=== PATIENT | female | born 1985 | race Caucasian/White ===

== ENCOUNTER 2016-09-06 19:36 | Emergency (ER) | payer BC, MEDICARE ==
[2016-09-06] MEDS ORDERED: BUTALB/ACETAMINOPHEN/CAFFEINE 1 TAB EACH PO ONE (21:08)
--- NOTE | 2016-09-06 21:12 | ER Document Report ---
ED General - General Chief Complaint: Fall Stated Complaint: FALL, HEAD INJURY Notes: Patient is a 31-year-old female with past medical history of multiple psychiatric disorders who presents after apparently having a mechanical fall just prior to arrival. States she tripped over the edge of carpet and fell onto a door handle. Since that time she has had a dull, constant throbbing pain to her right parietal scalp. No loss of consciousness. She has not had any vomiting, weakness, numbness, or altered mental status. Does describe the pain in her scalp as being a constant, dull, aching pain. Worsened by light and sound. No history of similar injury in the past. She has not seen her primary care physician regarding today's concerns. Nothing improves her pain. TRAVEL OUTSIDE OF THE [place] IN LAST 30 DAYS: No - Related Data Allergies/Adverse Reactions: alcohol Allergy (Severe, Verified 09/06/16 21:25) Anaphylaxis amoxicillin [Amoxicillin] Allergy (Severe, Verified 09/06/16 21:25) Anaphylaxis venom-wasp [Wasp Venom] Allergy (Severe, Verified 09/06/16 21:25) HORRIBLE SWELLING haloperidol [From Haldol] Allergy (Intermediate, Verified 09/06/16 21:25) Abnormal behavior haloperidol lactate [From Haldol] Allergy (Intermediate, Verified 09/06/16 21:25 ) Abnormal behavior lamotrigine [From Lamictal] Allergy (Verified 09/06/16 21:25) STEROIDS Allergy (Severe, Uncoded 05/11/16 15:04) SUICIDAL THOUGHTS Past Medical History - General Information source: Patient - Social History Smoking Status: Never Smoker Frequency of alcohol use: None Drug Abuse: None Lives with: Parents Family History: CAD, Hyperlipidemia, Hypertension, Other - Degenerative disc disease and spinal stenosis - Past Medical History Cardiac Medical History: Denies: Hx Coronary Artery Disease, Hx Heart Attack, Hx Hypertension Pulmonary Medical History: Reports: Hx Bronchitis, Hx Pneumonia Denies: Hx Asthma, Hx COPD Neurological Medical History: Reports: Hx Migraine, Hx Seizures - according to patient none witnessed. Denies: Hx Cerebrovascular Accident Musculoskeltal Medical History: Denies Hx Arthritis - FIBROMYALGIA, Reports Hx Fibromyalgia, Reports Hx Musculoskeletal Deformity, Reports Hx Musculoskeletal Trauma Skin Medical History: Reports Hx Eczema, Reports Hx Psoriasis Psychiatric Medical History: Reports: Hx Anxiety, Hx Attention Deficit Hyperactivity Disorder, Hx Bipolar Disorder, Hx Depression Past Surgical History: Reports: Hx Breast Surgery - bx, Hx Tonsillectomy, Hx Tubal Ligation - Immunizations Immunizations up to date: Yes Hx Diphtheria, Pertussis, Tetanus Vaccination: No Review of Systems - Review of Systems Notes: Constitutional: Negative for fever. Eyes: Negative for visual changes. ENT: Negative for facial injury Cardiovascular: Negative for chest injury. Respiratory: Negative for shortness of breath. Gastrointestinal: Negative for abdominal injury. Genitourinary: Negative for genital injury Musculoskeletal: Negative for back injury. Skin: Negative for laceration/abrasions. Neurological: Positive for head injury. Physical Exam - Vital signs Vitals: Temp Pulse Resp BP Pulse Ox 97.7 F 102 H 18 130/77 H 99 09/06/16 19:42 09/06/16 19:42 09/06/16 19:42 09/06/16 19:42 09/06/16 19:42 Interpretation: Tachycardic Notes: PHYSICAL EXAMINATION: GENERAL: Well-appearing, no acute distress. HEAD: Mild swelling to the right parietal scalp, normocephalic. EYES: Pupils equal round and reactive to light, extraocular movements intact, sclera anicteric, conjunctiva are normal. ENT: nares patent, no oral pharyngeal trauma. No hemotympanum, no Olson's sign , no raccoon eyes. NECK: No midline cervical spine tenderness. Patient able to move their head to 45 bilaterally without any discomfort. LUNGS: Breath sounds clear to auscultation bilaterally and equal. No wheezes rales or rhonchi. HEART: Regular rate and rhythm without murmurs. CHEST WALL: No ecchymosis over the chest wall. ABDOMEN: Soft, nontender, normoactive bowel sounds. No guarding, no rebound. No seatbelt sign. EXTREMITIES: Normal range of motion, no pitting or edema. No long bone deformities. BACK: No midline spinal tenderness, step-offs, or deformities. NEUROLOGICAL: Face symmetric. Tongue protrudes midline. Extraocular motions intact. Pupils are 2 mm and equally reactive. Normal speech, normal gait. 5 out of 5 strength in both the distal and proximal upper and lower extremities bilaterally. Sensation is grossly intact throughout. Finger to nose testing normal. Pronator drift normal. PSYCH: Highly anxious SKIN: Warm, Dry, normal turgor, no rashes or lesions noted. Course - Re-evaluation Re-evalutation: 09/06/16 21:10 Presentation of head trauma in an otherwise well-appearing patient. No focal neurologic deficits on exam, no evidence of basilar skull fracture on exam without evidence of hemotympanum, raccoon eyes, or periauricular hematoma. No papilledema. Patient is not on anticoagulation. GCS is 15. No loss of consciousness. No episodes of vomiting. Patient is therefore negative via [place] head CT criteria and CT imaging will not be obtained at this time. Patient evaluated by NEXUS criteria and found to be negative. Patient is also negative by [place] C-spine criteria. No clinical evidence to suggest increased risk of cervical spine fracture. No indication for further imaging of the cervical spine this point. Clinical history and exam is most consistent with acute concussion. No labs, imaging indicated at this time.At this time will discharge with return precautions and follow-up recommendations. Verbal discharge instructions given a the bedside and opportunity for questions given. Medication warnings reviewed. Patient is in agreement with this plan and has verbalized understanding of return precautions and the need for primary care follow-up in the next 24-72 hours. - Vital Signs Vital signs: Temp Pulse Resp BP Pulse Ox 97.8 F 107 H 20 116/88 H 98 09/06/16 21:51 09/06/16 21:51 09/06/16 21:51 09/06/16 21:51 09/06/16 21:51 Discharge - Discharge Clinical Impression: Head trauma Qualifiers: Encounter type: initial encounter Qualified Code(s): S09.90XA - Unspecified injury of head, initial encounter Condition: Good Disposition: HOME, SELF-CARE Additional Instructions: You have likely sustained a contusion (bruise) to your head. Symptoms to expect from a concussion include nausea, mild to moderate headache, difficulty concentrating or sleeping, and mild lightheadedness. These symptoms should improve over the next few days to weeks. Return to the emergency department or follow-up with your primary care doctor if your symptoms are not improving over this time. Signs of a more serious head injury include vomiting, severe headache, excessive sleepiness or confusion, and weakness or numbness in your face, arms or legs. Return immediately to the Emergency Department if you experience any of these more concerning symptoms. Rest, avoid strenuous physical or mental activity, and avoid activities that could potentially result in another head injury until all your symptoms from this head injury are completely resolved for at least 2-3 weeks. If you participate in sports, get cleared by your doctor or circus trainer before returning to play. You may take ibuprofen or acetaminophen over the counter according to label instructions for mild headache or scalp soreness. Prescriptions: Butalb/Acetaminophen/Caffeine [Fioricet (50-325-40 mg) Tablet] 1 tab PO Q4HP PRN #30 tab PRN Reason: Referrals: CHRIS RESENDIZ DO [Primary Care Provider] - Follow up as needed
[2016-09-06 22:11] VITALS: BP 116/88
== END 2016-09-06 21:55 | disposition home or self-care (01) ==
LOC: ER 19:36
DX: S09.90XA Unspecified injury of head, initial encounter (principal); W19.XXXA Unspecified fall, initial encounter
CPT/HCPCS: 99283; J3490

== ENCOUNTER 2017-12-18 10:13 | Day surgery (SDC) | payer BC, MEDICARE ==
[~2017-12-18 10:13] MED LIST: PROPOFOL INJ 200 MG/20 ML VIAL IV ONE
[2017-12-18] MEDS ORDERED: PROPOFOL INJ 200 MG/20 ML VIAL IV ONE (11:50)
[2017-12-18 12:23] VITALS: BP 124/86
--- NOTE | 2017-12-18 13:47 | Operative Report ---
Operative Report DATE OF SURGERY: 12/18/17 Operative Report: The risks, benefits and alternatives of the procedure including risks of bleeding, perforation requiring surgery I explained to the patient in detail and informed consent was obtained. The patient was brought back to the endoscopy suite and placed in the left lateral decubital position. Timeout was called., propofol medication is administered. A rectal examination was done which did not reveal any masses, tenderness or fissures. An Olympus videoscope was inserted into the patient's rectum. The scope was then carefully advanced all the way to the cecum. The cecum as identified by the usual anatomical landmarks including the ileocecal valve as well as the appendiceal orifice. The scope was then sequentially pulled back via the various segments of the colon. Prep is good. Photodocumentation was obtained. The scope was then pulled back via the various segments of the colon including the ascending colon , transverse colon, splenic flexure, descending colon and finally into the rectosigmoid area of the colon. Retroflexion maneuver was performed. The risks benefits and alternatives of the procedure explained to the patient in detail and informed consent is obtained.A GIF Olympus video scope was inserted into the patient's mouth and hypopharynx, the esophagus is identified intubated and insufflated, the scope was then advanced through the esophagus stomach and duodenum, retroflexion maneuver is done, the esophagus stomach and first and second portions of the duodenum examined PREOPERATIVE DIAGNOSIS: Change in bowel habits. History of hematemesis POSTOPERATIVE DIAGNOSIS: Mild right-sided inflammation status post biopsy. Redundancy of colon. Internal hemorrhoids. Gastritis. Gastric erosions status post biopsy OPERATION: Colonoscopy with biopsy. EGD with biopsy SURGEON: PRECIOUS CAGLE ANESTHESIA: LMAC TISSUE REMOVED OR ALTERED: As noted above. COMPLICATIONS: None. ESTIMATED BLOOD LOSS: None. INTRAOPERATIVE FINDINGS: As noted above. PROCEDURE: Patient tolerated the procedure well. No immediate postprocedure complications are noted. Patient discharged in good condition. Discharge date 12/18/2017. Discharge diet: Regular. Discharge activity: Regular. 2-3 week follow-up to discuss findings. Patient is instructed to call the office or proceed to the emergency room should there be any further problems or questions. We will wait on pathology.
== END 2017-12-18 12:25 | disposition home or self-care (01) ==
LOC: END 10:13
PROVIDERS: ATTEND Internal Medicine Gastroenterology
DX: K29.70 Gastritis, unspecified, without bleeding (principal); K92.0 Hematemesis; K52.9 Noninfective gastroenteritis and colitis, unspecified; K64.8 Other hemorrhoids; Q43.8 Other specified congenital malformations of intestine; M79.7 Fibromyalgia; D80.1 Nonfamilial hypogammaglobulinemia; E78.2 Mixed hyperlipidemia; E53.8 Deficiency of other specified B group vitamins; Z87.891 Personal history of nicotine dependence; Z79.51 Long term (current) use of inhaled steroids; Z79.899 Other long term (current) drug therapy
CPT/HCPCS: 43239; 45380; 88342 ×2; 88305 ×2; J2704; 813

== ENCOUNTER → 2019-08-12 | Outpatient (CLI) | payer BC, MEDICARE ==
--- NOTE | 2019-08-12 10:50 | RADIOLOGY REPORT (SQ) ---
EXAM DESCRIPTION: NM HIDA SCAN WITH CCK COMPLETED DATE/TIME: 08/12/2019 10:40 am REASON FOR STUDY: R10.11 RIGHT UPPER QUADRANT PAIN R10.11 RIGHT UPPER QUADRANT PAIN COMPARISON: None. RADIONUCLIDE AND DOSE: DOSAGE RADIONUCLIDE: 5.36 millicuries Tc99m Mebrofenin. DOSAGE CCK: 8.0 micrograms. DOSAGE MORPHINE: Not required. The route of agent administration: Intravenous TECHNIQUE: Serial imaging right upper quadrant up to 60 minutes following injection of radionuclide. CCK injected after gallbladder visualized. LIMITATIONS: None. FINDINGS: LIVER: Normal visualization without areas of photopenia. INTRAHEPATIC BILE DUCTS: Normal size and no delay in visualization. COMMON BILE DUCT: Normal without dilatation. GALLBLADDER: Normal visualization. Calculated ejection fraction of 96%. Normal range is greater th an 35%. PHYSICAL RESPONSE: Patients presenting complaint was reproduced. OTHER: No other significant finding. IMPRESSION: NORMAL STUDY WITHOUT CYSTIC OR COMMON DUCT OBSTRUCTION. NORMAL GALLBLADDER EJECTION FRA CTION. NO EVIDENCE FOR BILIARY DYSKINESIS. THE PATIENT'S SYMPTOMS WERE REPRODUCED WITH CCK ADMINIST RATION. TECHNICAL DOCUMENTATION: JOB ID: [id number] [employer]- All Rights Reserved Reading location - IP/workstation name: [email or web address]
== END ==
LOC: RAD 08:00
PROVIDERS: ATTEND Family Medicine
DX: R10.11 Right upper quadrant pain (principal)
CPT/HCPCS: 78227; J2805; A9537; Q9969

== ENCOUNTER 2020-03-01 10:58 | Emergency (ER) | payer BC, MEDICARE ==
[2020-03-01 11:13] VITALS: BP 119/90
[2020-03-01] MEDS ORDERED: KETOROLAC TROMETHAMINE 60 MG/2 ML SDV IM ONE (11:38)
[2020-03-01] MEDS ORDERED: PREDNISONE 20 MG TABLET PO ONE (11:38)
--- NOTE | 2020-03-01 11:46 | ER Document Report ---
ED Neck/Back Problem - General Chief Complaint: Back Pain Stated Complaint: BACK PAIN Time Seen by Provider: 03/01/20 11:28 Primary Care Provider: CHRIS MA DO [Primary Care Provider] - Follow up as needed Notes: CHIEF COMPLAINT: Worsened back pain HPI: 35-year-old female with history of chronic back pain who follows with Dr. Ma for this issue presenting with worsened pain in the right lower back with some radiation into the right gluteal region. This began yesterday. No incontinence of urine or bowel. She did attempt to contact her PCP today who appears to have called in a prescription for steroids for the patient which she has not yet started. Patient states she is on chronic pain management with oxycodone and MS Contin. States she has an MRI scheduled for March 05. ROS: See HPI - all other systems were reviewed and are otherwise negative Constitutional: no fever GI: no vomiting, no diarrhea, no abdominal pain : no dysuria Integumentary: no rash Allergy: no hives Musculoskeletal: no extremity pain or swelling, positive back pain Neurological: no numbness/tingling, no weakness MEDICATIONS: I agree with the patient medications as charted by the RN. ALLERGIES: I agree with the allergies as charted by the RN. PAST MEDICAL HISTORY/PAST SURGICAL HISTORY: Reviewed and agree as charted by RN. SOCIAL HISTORY: Reviewed and agree as charted by RN. FAMILY HISTORY: No significant familial comorbid conditions directly related to patient complaint EXAM: Reviewed vital signs as charted by RN. CONSTITUTIONAL: Alert and oriented and responds appropriately to questions. Well-appearing; well-nourished HEAD: Normocephalic; atraumatic EYES: Conjunctivae clear, sclerae non-icteric ENT: normal nose; no rhinorrhea; moist mucous membranes NECK: Supple without meningismus CARD: RRR; no murmurs, no clicks, no rubs, no gallops; symmetric distal pulses RESP: Normal chest excursion without splinting or tachypnea ABD/GI: Normal bowel sounds; non-distended; soft, non-tender, no rebound, no guarding; no palpable organomegaly or masses. BACK: The back appears normal and is mildly tender to palpation in the right lower lumbar back into the right gluteal region, there is no CVA tenderness EXT: Normal ROM in all joints; non-tender to palpation; no cyanosis, no effusions, no edema SKIN: Normal color for age and race; warm; dry; good turgor; no acute lesions noted NEURO: Moves all extremities equally; Motor and sensory function intact. Strength equal 5/5 bilateral lower extremities. Sensation intact and equal bilateral lower extremities. Straight leg raise is negative. No saddle anesthesia on exam. DTRs 2+ intact and equal bilateral lower extremities. PSYCH: The patient's mood and manner are appropriate. Grooming and personal hygiene are appropriate. MDM: 35-year-old female with acute exacerbation of chronic back pain with mild sciatic symptoms. She has a prescription for prednisone called into her pharmacy. We will give her a boost dose here in the ER with a injection of Toradol for pain. She is on chronic pain management she is aware after discussion that we cannot change her pain management system or give additional pain management narcotics. She is to portal or call her PCP for changes in her narcotic medicines TRAVEL OUTSIDE OF THE [place] IN LAST 30 DAYS: No - Related Data Allergies/Adverse Reactions: alcohol Allergy (Severe, Verified 12/18/17 10:18) Anaphylaxis amoxicillin [Amoxicillin] Allergy (Severe, Verified 12/18/17 10:18) Anaphylaxis venom-wasp [Wasp Venom] Allergy (Severe, Verified 12/18/17 10:18) HORRIBLE SWELLING haloperidol [From Haldol] Allergy (Intermediate, Verified 12/18/17 10:18) Abnormal behavior haloperidol lactate [From Haldol] Allergy (Intermediate, Verified 12/18/17 10:18) Abnormal behavior lamotrigine [From Lamictal] Allergy (Intermediate, Verified 12/18/17 10:18) Blisters STEROIDS Allergy (Severe, Uncoded 12/18/17 10:18) SUICIDAL THOUGHTS Home Medications: MS Contin 30mg BID, Oxycodone 15mg BID, Remeron 30mg QHS, Clonazapam QHS, vitamin D, prednisone. Past Medical History - Social History Smoking Status: Current Every Day Smoker Frequency of alcohol use: None Drug Abuse: None Family History: CAD, Hyperlipidemia, Hypertension, Other - Past Medical History Cardiac Medical History: Denies: Hx Coronary Artery Disease, Hx Heart Attack, Hx Hypertension Pulmonary Medical History: Reports: Hx Bronchitis - A CHILD, Hx Pneumonia - 2014 Denies: Hx Asthma, Hx COPD Neurological Medical History: Reports: Hx Migraine, Hx Seizures - according to patient none witnessed. Denies: Hx Cerebrovascular Accident Musculoskeletal Medical History: Comment Only Hx Arthritis - FIBROMYALGIA, Reports Hx Fibromyalgia, Reports Hx Musculoskeletal Deformity, Reports Hx Musculoskeletal Trauma Skin Medical History: Reports Hx Eczema, Reports Hx Psoriasis Psychiatric Medical History: Reports: Hx Anxiety, Hx Attention Deficit Hyperactivity Disorder, Hx Bipolar Disorder, Hx Depression Past Surgical History: Reports: Hx Breast Surgery - bx, Hx Tonsillectomy, Hx Tubal Ligation - Immunizations Immunizations up to date: Yes Hx Diphtheria, Pertussis, Tetanus Vaccination: No Physical Exam - Vital signs Vitals: Temp Pulse Resp BP Pulse Ox 98.1 F 97 16 119/90 H 99 03/01/20 11:12 03/01/20 11:12 03/01/20 11:12 03/01/20 11:12 03/01/20 11:12 Course - Vital Signs Vital signs: Temp Pulse Resp BP Pulse Ox 98.1 F 97 16 119/90 H 99 03/01/20 11:12 03/01/20 11:12 03/01/20 11:12 03/01/20 11:12 03/01/20 11:12 Discharge - Discharge Clinical Impression: Sciatica, right side, Acute exacerbation of chronic low back pain Condition: Stable Disposition: HOME, SELF-CARE Additional Instructions: Continue your previous pain medications. Take the steroids prescribed by your primary care provider. Contact them today or tomorrow for further changes in your narcotic pain regimen. Referrals: CHRIS MA DO [Primary Care Provider] - Follow up as needed
== END 2020-03-01 12:02 | disposition home or self-care (01) ==
LOC: ER 10:58
DX: G89.29 Other chronic pain (principal); M54.41 Lumbago with sciatica, right side; F32.9 Major depressive disorder, single episode, unspecified; F41.9 Anxiety disorder, unspecified; Z79.891 Long term (current) use of opiate analgesic; Z79.899 Other long term (current) drug therapy; Z87.892 Personal history of anaphylaxis; Z88.0 Allergy status to penicillin; Z91.038 Other insect allergy status; Z88.8 Allergy status to other drugs, medicaments and biological substances
CPT/HCPCS: 99283; 96372; J1885; J7512

== ENCOUNTER 2020-05-31 13:24 | Emergency (ER) | payer BC, MEDICARE ==
[2020-05-31 14:05] VITALS: BP 130/95
--- NOTE | 2020-05-31 14:20 | ER Document Report ---
ED Medical Screen (RME) - General Chief Complaint: Abdominal Pain Stated Complaint: FLANK PAIN Time Seen by Provider: 05/31/20 14:10 Primary Care Provider: CHRIS ERSENDIZ DO [Primary Care Provider] - Follow up as needed Mode of Arrival: Ambulatory Information source: Patient Notes: 35-year-old female presents to ED for complaint of generalized abdominal pain for about a year worse for the last 4 days. She states she has not had a bowel movement for the last 4 days. She states her pain is a3/5 sharp and constant. She states if she lays flat down it feels the best but if she states it is extremely painful. She states if she stands up it feels better for a little while. But then it spreads and makes ago other areas hurt. Patient is alert oriented respirations regular nonlabored speaking in full sentences. We will get blood and urine at this time and an abdominal x-ray and then she will be seen by another provider. She states she took 1 bottle of mag citrate last night and a quarter bottle of mag citrate this morning no results. She states she has been on her menstrual cycle for the last 2 months. I have greeted and performed a rapid initial assessment of this patient. A comprehensive ED assessment and evaluation of the patient, analysis of test results and completion of medical decision making process will be conducted by an additional ED providers. TRAVEL OUTSIDE OF THE [place] IN LAST 30 DAYS: No - HPI Onset: Other - Has been going on off and on for a year but much worse today Onset/Duration: Intermittent Quality of pain: Sharp, Other - Consistent Severity: Moderate Pain Level: 3 Associated Symptoms: Nausea Exacerbated by: Sitting Relieved by: Standing Similar symptoms previously: Yes Recently seen / treated by doctor: No - Related Data Smoking: Cigarettes - Pack a day Frequency of alcohol use: None Drug Abuse: None Allergies/Adverse Reactions: alcohol Allergy (Severe, Verified 12/18/17 10:18) Anaphylaxis amoxicillin [Amoxicillin] Allergy (Severe, Verified 12/18/17 10:18) Anaphylaxis venom-wasp [Wasp Venom] Allergy (Severe, Verified 12/18/17 10:18) HORRIBLE SWELLING haloperidol [From Haldol] Allergy (Intermediate, Verified 12/18/17 10:18) Abnormal behavior haloperidol lactate [From Haldol] Allergy (Intermediate, Verified 12/18/17 10:18) Abnormal behavior lamotrigine [From Lamictal] Allergy (Intermediate, Verified 12/18/17 10:18) Blisters STEROIDS Allergy (Severe, Uncoded 12/18/17 10:18) SUICIDAL THOUGHTS Past Medical History - Past Medical History Cardiac Medical History: Reports: None Pulmonary Medical History: Reports: Hx Bronchitis - A CHILD, Hx Pneumonia - 2014 Neurological Medical History: Reports: Hx Migraine, Hx Seizures - according to patient none witnessed Endocrine Medical History: Reports: None Renal/ Medical History: Reports: None Malignancy Medical History: Reports: None GI Medical History: Reports: None Musculoskeltal Medical History: Reports Hx Arthritis, Reports Hx Fibromyalgia, Reports Hx Musculoskeletal Deformity, Reports Hx Musculoskeletal Trauma, Reports Other - Scleroderma, polymyositis Skin Medical History: Reports Hx Eczema, Reports Hx Psoriasis Psychiatric Medical History: Reports: Hx Anxiety, Hx Attention Deficit Hyperactivity Disorder, Hx Depression Traumatic Medical History: Reports: None Infectious Medical History: Reports: None Past Surgical History: Reports: Hx Tonsillectomy - Immunizations Immunizations up to date: Yes Hx Diphtheria, Pertussis, Tetanus Vaccination: No Physical Exam - Vital signs Vitals: Temp Pulse Resp BP Pulse Ox 98.9 F 106 H 20 130/95 H 96 05/31/20 14:04 05/31/20 14:04 05/31/20 14:04 05/31/20 14:04 05/31/20 14:04 Course - Vital Signs Vital signs: Temp Pulse Resp BP Pulse Ox 98.9 F 106 H 20 130/95 H 96 05/31/20 14:04 05/31/20 14:04 05/31/20 14:04 05/31/20 14:04 05/31/20 14:04 Doctor's Discharge - Discharge Referrals: CHRIS RESENDIZ DO [Primary Care Provider] - Follow up as needed
== END 2020-05-31 17:00 | disposition left against medical advice (07) ==
LOC: ER 13:24
DX: R10.84 Generalized abdominal pain (principal); R11.0 Nausea; F17.210 Nicotine dependence, cigarettes, uncomplicated; Z87.892 Personal history of anaphylaxis; Z88.0 Allergy status to penicillin; Z91.038 Other insect allergy status; Z88.8 Allergy status to other drugs, medicaments and biological substances; Z53.20 Procedure and treatment not carried out because of patient's decision for unspecified reasons
CPT/HCPCS: 99281